=== PATIENT | female | born 1980 | race Two or more races ===

== ENCOUNTER 2018-09-20 20:22 | Observation (INO) | payer MEDICAID ==
[~2018-09-20] VITALS: Ht 167.6 cm; Wt 81.6 kg
[2018-09-20] MEDS ORDERED: ONDANSETRON HCL 4MG/2ML INJ IV NR (21:30)
[2018-09-20] MEDS: LACTATED RINGERS 1,000 ML IV SCH (21:52)
[2018-09-20 22:28] LABS: CHLORIDE 106 mEq/L (98-107)
[2018-09-20 22:34] LABS: BASOPHILS % 0.5 % (0.0-2.0); EOSINOPHILS % 1.1 % (0.0-5.0); HEMATOCRIT. 36.3 % (36.0-48.0); HEMOGLOBIN. 12.1 g/dL (12.0-16.0); LYMPHOCYTES % 15.1 % (20.0-50.0); MEAN CORPUSCULAR HEMOGLOBIN 31.1 pg (28.0-32.0); MEAN CORPUSCULAR VOLUME 93.3 fL (81.0-99.0); MEAN PLATELET VOLUME 9.2 fl (7.4-10.4); MONOCYTES % 10.1 % (2.0-8.0); NEUTROPHILS % 73.2 % (40.0-76.0); PLATELET 242 x1000/uL (130-400); RED BLOOD CELL COUNT 3.89 mill/uL (4.2-5.4); RED CELL DISTRIBUTION WIDTH 13.3 % (11.6-14.6)
[2018-09-20] MEDS ORDERED: CITRIC ACID/SODIUM CITRATE SOLN 30ML UDC PO SCH (23:45)
[2018-09-21 00:55] LABS: CLARITY URINE CLOUDY (CLEAR); COLOR URINE YELLOW (YELLOW); KETONES URINE TRACE (NEGATIVE); LEUKOCYTE ESTERASE URINE NEGATIVE (NEGATIVE); NITRITE URINE NEGATIVE (NEGATIVE); OCCULT BLOOD URINE NEGATIVE (NEGATIVE); PH URINE 6.5 (4.5-8.0); PROTEIN URINE NEGATIVE (NEGATIVE); SPECIFIC GRAVITY URINE 1.025 (1.005-1.030)
[2018-09-21 01:04] LABS: *BARBITURATES SCREEN URINE NEGATIVE (NEGATIVE); *BENZODIAZEPINES SCREEN URINE NEGATIVE (NEGATIVE); *COCAINE SCREEN URINE NEGATIVE (NEGATIVE)
[2018-09-21 01:05] LABS: *AMPHETAMINES SCREEN URINE NEGATIVE (NEGATIVE); CANNABINOID URINE SCREEN NEGATIVE (NEGATIVE); METHADONE URINE SCREEN NEGATIVE (NEGATIVE); OPIATES URINE SCREEN NEGATIVE (NEGATIVE); PHENCYCLIDINE URINE SCREEN NEGATIVE (NEGATIVE)
[2018-09-21] MEDS ORDERED: PNV1TABL50 MT (02:14)
[2018-09-21] MEDS ORDERED: GUAIFENESIN-DM 200MG-20MG/10ML UDC PO SCH (02:15)
[2018-09-21] MEDS: LACTATED RINGERS 1,000 ML IV SCH (04:24)
== END 2018-09-21 02:45 | disposition home or self-care (01) ==
LOC: 8 EST LDRP 20:22
PROVIDERS: ADMIT Obstetrics & Gynecology; ATTEND Obstetrics & Gynecology
DX: O62.9 Abnormality of forces of labor, unspecified (principal); O21.2 Late vomiting of pregnancy; O26.893 Other specified pregnancy related conditions, third trimester; L29.9 Pruritus, unspecified; O09.523 Supervision of elderly multigravida, third trimester; Z3A.37 37 weeks gestation of pregnancy
CPT/HCPCS: 36415; 76805; 76818; 80053; 80076; 80305; 81003; 85025; 96361; 96374; 99281; G0378; J2405; 82248; 96360

== ENCOUNTER 2020-02-27 11:23 | Observation (INO) | payer MEDICAID, OTHER ==
[~2020-02-27 11:23] MED LIST: PNV1TABL50 MT
[2020-02-27 15:04] LABS: CHLORIDE 108 mEq/L (98-107)
[2020-02-27 15:11] LABS: CLARITY URINE CLEAR (CLEAR); COLOR URINE YELLOW (YELLOW); KETONES URINE TRACE (NEGATIVE); LEUKOCYTE ESTERASE URINE NEGATIVE (NEGATIVE); NITRITE URINE NEGATIVE (NEGATIVE); OCCULT BLOOD URINE NEGATIVE (NEGATIVE); PH URINE 6.5 (4.5-8.0); PROTEIN URINE TRACE (NEGATIVE); SPECIFIC GRAVITY URINE 1.029 (1.005-1.030)
[2020-02-27 15:39] LABS: *BARBITURATES SCREEN URINE NEGATIVE (NEGATIVE); *BENZODIAZEPINES SCREEN URINE NEGATIVE (NEGATIVE); *COCAINE SCREEN URINE NEGATIVE (NEGATIVE)
[2020-02-27 15:40] LABS: *AMPHETAMINES SCREEN URINE NEGATIVE (NEGATIVE); CANNABINOID URINE SCREEN NEGATIVE (NEGATIVE); METHADONE URINE SCREEN NEGATIVE (NEGATIVE); OPIATES URINE SCREEN NEGATIVE (NEGATIVE); PHENCYCLIDINE URINE SCREEN NEGATIVE (NEGATIVE)
[2020-02-27 15:57] LABS: HEPATITIS B SURFACE ANTIGEN NEGATIVE
== END 2020-02-27 15:00 | disposition home or self-care (01) ==
LOC: 8 EST LDRP 11:23
PROVIDERS: ADMIT Obstetrics & Gynecology; ATTEND Obstetrics & Gynecology
DX: O21.2 Late vomiting of pregnancy (principal); Z3A.35 35 weeks gestation of pregnancy; Z79.899 Other long term (current) drug therapy
CPT/HCPCS: 36415; 76805; 76818; 80053; 80305; 81003; 82239; 86592; 86703; 86762; 86850; 86900; 86901; 87340; 99281; G0378

== ENCOUNTER 2020-03-05 13:39 | Inpatient (IN) | payer MEDICAID ==
[~2020-03-05] VITALS: Ht 167.6 cm; Wt 77.1 kg
[2020-03-05] MEDS ORDERED: OXYTOCIN 10 UNITS/ML 1ML ONE (14:41)
[2020-03-05] MEDS ORDERED: ACETAMINOPHEN WITH CODEINE 300/30MG TABLET PO PRN (15:00)
[2020-03-05] MEDS ORDERED: LANOLIN OINT 7GM TUBE TOP PRN (15:00)
[2020-03-05] MEDS ORDERED: BENZOCAINE/LANOLIN/ALOE VERA SPRAY TOP PRN (15:00)
[2020-03-05] MEDS ORDERED: METHYLERGONOVINE MALEATE 0.2 MG/ML IM PRN (15:00)
[2020-03-05] MEDS ORDERED: IBUPROFEN 400MG TABLET PO PRN (15:00)
[2020-03-05] MEDS ORDERED: HEMORRHOIDAL SUPP PR PRN (15:00)
[2020-03-05] MEDS ORDERED: BISACODYL 10MG SUPP PR PRN (15:00)
[2020-03-05] MEDS ORDERED: GLYCERIN/WITCH HAZEL LEAF MEDICATED PAD TOP PRN (15:00)
[2020-03-05 15:25] LABS: BASOPHILS % 0.4 % (0.0-2.0); EOSINOPHILS % 0.2 % (0.0-5.0); HEMATOCRIT. 36.7 % (36.0-48.0); HEMOGLOBIN. 12.5 g/dL (12.0-16.0); LYMPHOCYTES % 11.5 % (20.0-50.0); MEAN CORPUSCULAR HEMOGLOBIN 31.5 pg (28.0-32.0); MEAN CORPUSCULAR VOLUME 92.8 fL (81.0-99.0); MEAN PLATELET VOLUME 9.9 fl (7.4-10.4); NEUTROPHILS % 82.9 % (40.0-76.0); PLATELET 244 x1000/uL (130-400); RED BLOOD CELL COUNT 3.95 mill/uL (4.2-5.4); RED CELL DISTRIBUTION WIDTH 13.1 % (11.6-14.6)
[2020-03-05 15:34] LABS: INR 0.9; PARTIAL THROMBOPLASTIN TIME 28.5 sec (23.4-31.0)
[2020-03-05 15:45] VITALS: BP 145/88
[2020-03-05 16:04] LABS: HEPATITIS B SURFACE ANTIGEN NEGATIVE
[2020-03-05 17:00] VITALS: BP 114/68
[2020-03-05 20:00] VITALS: BP 131/74
[2020-03-05] MEDS: SIMETHICONE 80MG TABLET CHEW PO SCH (21:23)
[2020-03-05] MEDS: DOCUSATE SODIUM 100MG CAPSULE PO SCH (21:23)
[2020-03-05] MEDS: MAGNESIUM/ALUMINUM HYDROXIDE/SIMETHICONE 30ML UDC PO SCH (21:23)
[2020-03-05 22:10] LABS: CLARITY URINE CLOUDY (CLEAR); COLOR URINE ORANGE (YELLOW); KETONES URINE NEGATIVE (NEGATIVE); LEUKOCYTE ESTERASE URINE 1+ (NEGATIVE); NITRITE URINE NEGATIVE (NEGATIVE); OCCULT BLOOD URINE 3+ (NEGATIVE); PROTEIN URINE 1+ (NEGATIVE); SPECIFIC GRAVITY URINE 1.026 (1.005-1.030)
[2020-03-05 22:29] LABS: *AMPHETAMINES SCREEN URINE NEGATIVE (NEGATIVE); *BARBITURATES SCREEN URINE NEGATIVE (NEGATIVE)
[2020-03-05 22:30] LABS: *BENZODIAZEPINES SCREEN URINE NEGATIVE (NEGATIVE); *COCAINE SCREEN URINE NEGATIVE (NEGATIVE); CANNABINOID URINE SCREEN NEGATIVE (NEGATIVE); METHADONE URINE SCREEN NEGATIVE (NEGATIVE); PHENCYCLIDINE URINE SCREEN NEGATIVE (NEGATIVE)
[2020-03-05 22:38] LABS: OPIATES URINE SCREEN PRESUMTIVE POSITIVE (NEGATIVE)
[2020-03-06] MEDS: ACETAMINOPHEN WITH CODEINE 300/30MG TABLET PO PRN ×2 (01:19→09:31)
[2020-03-06 04:00] VITALS: BP 106/68
[2020-03-06] MEDS: PRENATAL VIT/FE FUMARATE/FA TABLET PO SCH (09:30)
[2020-03-06] MEDS: FERROUS SULFATE 325MG TABLET PO SCH ×2 (09:30→17:58)
[2020-03-06 11:47] LABS: BASOPHILS % 0.3 % (0.0-2.0); EOSINOPHILS % 1.4 % (0.0-5.0); HEMATOCRIT. 33.9 % (36.0-48.0); HEMOGLOBIN. 11.5 g/dL (12.0-16.0); LYMPHOCYTES % 22.9 % (20.0-50.0); MEAN CORPUSCULAR HEMOGLOBIN 31.3 pg (28.0-32.0); MEAN CORPUSCULAR VOLUME 92.7 fL (81.0-99.0); MEAN PLATELET VOLUME 9.7 fl (7.4-10.4); MONOCYTES % 7.6 % (2.0-8.0); NEUTROPHILS % 67.8 % (40.0-76.0); PLATELET 236 x1000/uL (130-400); RED BLOOD CELL COUNT 3.66 mill/uL (4.2-5.4); RED CELL DISTRIBUTION WIDTH 13.1 % (11.6-14.6)
[2020-03-06 16:45] VITALS: BP 107/53
[2020-03-06 20:00] VITALS: BP 119/69
[2020-03-06] MEDS: MAGNESIUM/ALUMINUM HYDROXIDE/SIMETHICONE 30ML UDC PO SCH (23:41)
[2020-03-06] MEDS: DOCUSATE SODIUM 100MG CAPSULE PO SCH (23:41)
[2020-03-06] MEDS: SIMETHICONE 80MG TABLET CHEW PO SCH (23:41)
[2020-03-07 04:00] VITALS: BP 124/73
[2020-03-07 08:20] VITALS: BP 103/52
[2020-03-07] MEDS: PRENATAL VIT/FE FUMARATE/FA TABLET PO SCH (08:47)
[2020-03-07] MEDS: FERROUS SULFATE 325MG TABLET PO SCH (08:47)
== END 2020-03-07 15:45 | disposition home or self-care (01) | DRG 561 ==
LOC: OBSVTOIN 13:39 → 8EST NSY 13:39 → 8 EST A/PP 14:01
PROVIDERS: ADMIT Obstetrics & Gynecology; ATTEND Obstetrics & Gynecology
DX: Z39.0 Encounter for care and examination of mother immediately after delivery (principal); Z88.8 Allergy status to other drugs, medicaments and biological substances
CPT/HCPCS: 36415; 80305; 81003; 85025; 86592; 86703; 86762; 86850; 86900; 87340; 99281

== ENCOUNTER 2022-03-06 04:06 | Emergency (ER) | payer MEDICAID ==
[~2022-03-06] VITALS: Ht 170.2 cm; Wt 70.0 kg
[2022-03-06 04:27] LABS: BASOPHILS % 0.3 % (0.0-2.0); HEMATOCRIT. 42.7 % (36.0-48.0); HEMOGLOBIN. 14.1 g/dL (12.0-16.0); LYMPHOCYTES % 34.7 % (20.0-50.0); MEAN CORPUSCULAR HEMOGLOBIN 29.8 pg (28.0-32.0); MEAN CORPUSCULAR VOLUME 90.2 fL (81.0-99.0); MEAN PLATELET VOLUME 9.1 fl (7.4-10.4); MONOCYTES % 8.3 % (2.0-8.0); NEUTROPHILS % 54.7 % (40.0-76.0); PLATELET 307 x1000/uL (130-400); RED BLOOD CELL COUNT 4.73 mill/uL (4.2-5.4); RED CELL DISTRIBUTION WIDTH 12.9 % (11.6-14.6)
[2022-03-06 04:33] LABS: CHLORIDE 108 mEq/L (98-107)
[2022-03-06 04:42] LABS: ETHANOL BLOOD < 10 mg/dL
[2022-03-06 09:17] LABS: CLARITY URINE CLOUDY (CLEAR); COLOR URINE YELLOW (YELLOW); KETONES URINE TRACE (NEGATIVE); LEUKOCYTE ESTERASE URINE NEGATIVE (NEGATIVE); NITRITE URINE NEGATIVE (NEGATIVE); OCCULT BLOOD URINE NEGATIVE (NEGATIVE); PH URINE 5.5 (4.5-8.0); PROTEIN URINE TRACE (NEGATIVE); SPECIFIC GRAVITY URINE 1.029 (1.005-1.030)
[2022-03-06 09:36] LABS: *BARBITURATES SCREEN URINE NEGATIVE (NEGATIVE); *BENZODIAZEPINES SCREEN URINE NEGATIVE (NEGATIVE); *COCAINE SCREEN URINE NEGATIVE (NEGATIVE); CANNABINOID URINE SCREEN NEGATIVE (NEGATIVE); METHADONE URINE SCREEN NEGATIVE (NEGATIVE); OPIATES URINE SCREEN NEGATIVE (NEGATIVE)
[2022-03-06 09:40] LABS: *AMPHETAMINES SCREEN URINE PRESUMTIVE POSITIVE (NEGATIVE); PHENCYCLIDINE URINE SCREEN PRESUMTIVE POSITIVE (NEGATIVE)
[2022-03-06] MEDS: RISPERIDONE 0.5MG TABLET PO SCH ×2 (11:33→19:40)
[2022-03-06] MEDS ORDERED: VENLAFAXINE HCL 37.5MG SR CAPSULE 24HR PO SCH (12:00)
[2022-03-06] MEDS ORDERED: OLANZAPINE 10 MG/VIAL IM NR (16:05)
[2022-03-06] MEDS ORDERED: DIPHENHYDRAMINE 50MG/ML VIAL IM NR (16:05)
[2022-03-07 00:02] VITALS: BP 93/52
== END 2022-03-07 00:56 ==
LOC: ER 04:06
DX: F25.1 Schizoaffective disorder, depressive type (principal); F41.9 Anxiety disorder, unspecified; R45.851 Suicidal ideations; F15.10 Other stimulant abuse, uncomplicated; Z20.822 Contact with and (suspected) exposure to COVID-19; Z75.1 Person awaiting admission to adequate facility elsewhere; Z88.5 Allergy status to narcotic agent
CPT/HCPCS: 36415; 80053; 80305; 80307; 80320; 80329; 81003; 81025; 85025; 96372; 99285; C9803; J1200; J3490; U0003; U0005; G0480

== ENCOUNTER 2023-01-12 11:40 | Emergency (ER) | payer MEDICAID ==
[~2023-01-12] VITALS: Ht 162.6 cm; Wt 63.0 kg
[2023-01-12 12:06] VITALS: BP 143/104
[2023-01-12] MEDS ORDERED: KETOROLAC 60MG/2ML VIAL IM STA (12:06)
[2023-01-12] MEDS ORDERED: LIDOCAINE HCL/PF 1% 10 MG/ML 5ML VIAL INFIL ONE ×2 (12:15→14:00)
[2023-01-12] MEDS ORDERED: BACITRACIN ZINC OINT UDPKT TOP ONE ×2 (12:15→15:45)
[2023-01-12] MEDS ORDERED: CEPHALEXIN 250MG CAPSULE PO NR (13:30)
[2023-01-12] MEDS ORDERED: IBUP-2029 PO (16:34)
[2023-01-12] MEDS ORDERED: CEPH500C2 PO (16:34)
[2023-01-12] MEDS ORDERED: TETANUS, DIPHTHERIA, PERTUSSIS VAC/PF 0.5ML (>10YR OLD) IM ONE (16:45)
== END 2023-01-12 17:58 | disposition left against medical advice (07) ==
LOC: ER 11:40
DX: S61.411A Laceration without foreign body of right hand, initial encounter (principal); Z88.5 Allergy status to narcotic agent; W26.0XXA Contact with knife, initial encounter; Y93.89 Activity, other specified; Y92.89 Other specified places as the place of occurrence of the external cause; Y99.8 Other external cause status
CPT/HCPCS: 12002; 73130; 81025; 90471; 90715; 96372; 99283; J1885; J3490; Z7610; 29125

== ENCOUNTER 2023-02-02 15:37 | Emergency (ER) | payer MEDICAID ==
[~2023-02-02] VITALS: Ht 167.6 cm; Wt 68.0 kg
[~2023-02-02 15:37] MED LIST changes: +CEPH500C2 PO; +IBUP-2029 PO; -PNV1TABL50 MT
[2023-02-02 15:40] VITALS: BP 134/94; PULSE 104; RESP 20; TEMP 98.5; O2SAT 99
== END 2023-02-02 17:11 | disposition home or self-care (01) ==
LOC: ER 15:37
DX: Z53.21 Procedure and treatment not carried out due to patient leaving prior to being seen by health care provider (principal)

== ENCOUNTER 2024-04-18 09:53 | Emergency (ER) | payer MEDICAID ==
[~2024-04-18] VITALS: Ht 167.6 cm; Wt 72.0 kg
[2024-04-18 09:58] VITALS: O2SAT 100
[2024-04-18 10:30] LABS: BASOPHILS % 0.3 % (0.0-2.0); HEMATOCRIT. 39.1 % (36.0-48.0); HEMOGLOBIN. 12.9 g/dL (12.0-16.0); LYMPHOCYTES % 23.1 % (20.0-50.0); MEAN CORPUSCULAR HEMOGLOBIN 30.3 pg (28.0-32.0); MEAN CORPUSCULAR VOLUME 91.8 fL (81.0-99.0); MEAN PLATELET VOLUME 8.3 fl (7.4-10.4); MONOCYTES % 6.8 % (2.0-8.0); NEUTROPHILS % 67.8 % (40.0-76.0); PLATELET 325 x1000/uL (130-400); RED BLOOD CELL COUNT 4.26 mill/uL (4.2-5.4); RED CELL DISTRIBUTION WIDTH 13.5 % (11.6-14.6); WHITE BLOOD COUNT 6.9 x1000/uL (4.5-11.0)
[2024-04-18 10:37] LABS: CHLORIDE 104 mEq/L (98-107); POTASSIUM 4.6 mEq/L (3.5-5.1); SODIUM 135 mEq/L (136-145)
[2024-04-18 10:38] LABS: CALCIUM 9.2 mg/dL (8.7-10.4); CARBON DIOXIDE 27 mEq/L (21-32)
[2024-04-18 10:43] LABS: CREATININE 0.8 mg/dL (0.6-1.0); GLUCOSE 84 mg/dL (70-105); UREA NITROGEN BLOOD 9 mg/dL (9-23)
[2024-04-18 11:12] LABS: TROPONIN I HIGH SENSITIVITY < 4 ng/L (3.0-34)
[2024-04-18] MEDS ORDERED: IBUP-2029 PO (11:42)
[2024-04-18 12:07] VITALS: BP 104/87; PULSE 99; RESP 16; TEMP 36.83628; O2SAT 100
[2024-04-18] MEDS: IBUPROFEN 600MG TABLET PO ONE ×2 (12:10→12:11)
[2024-04-18] MEDS ORDERED: METH-653 MT (12:12)
== END 2024-04-18 13:31 | disposition home or self-care (01) ==
LOC: ER 09:53
DX: S62.396A Other fracture of fifth metacarpal bone, right hand, initial encounter for closed fracture (principal); S33.5XXA Sprain of ligaments of lumbar spine, initial encounter; R07.89 Other chest pain; F10.20 Alcohol dependence, uncomplicated; J45.909 Unspecified asthma, uncomplicated; F32.A Depression, unspecified; Z88.8 Allergy status to other drugs, medicaments and biological substances; X58.XXXA Exposure to other specified factors, initial encounter; Y93.9 Activity, unspecified; Y92.89 Other specified places as the place of occurrence of the external cause; Y99.8 Other external cause status; Y90.0 Blood alcohol level of less than 20 mg/100 ml
CPT/HCPCS: 36415; 71045; 73130; 80048; 84484; 85025; 93005; 99285

== ENCOUNTER 2024-05-06 18:47 | Emergency (ER) | payer MEDICAID, OTHER ==
[~2024-05-06] VITALS: Ht 167.6 cm; Wt 68.0 kg
[~2024-05-06 18:47] MED LIST changes: +METH-653 MT
[2024-05-06 19:01] VITALS: O2SAT 99
[2024-05-06 21:42] LABS: BASOPHILS % 0.4 % (0.0-2.0); EOSINOPHILS % 0.9 % (0.0-5.0); HEMATOCRIT. 43.1 % (36.0-48.0); HEMOGLOBIN. 14.5 g/dL (12.0-16.0); LYMPHOCYTES % 20.4 % (20.0-50.0); MEAN CORPUSCULAR HEMOGLOBIN 30.7 pg (28.0-32.0); MEAN CORPUSCULAR HGB CONC 33.7 g/dL (31.0-37.0); MEAN CORPUSCULAR VOLUME 91.2 fL (81.0-99.0); MEAN PLATELET VOLUME 9.1 fl (7.4-10.4); MONOCYTES % 5.4 % (2.0-8.0); NEUTROPHILS % 72.9 % (40.0-76.0); PLATELET 254 x1000/uL (130-400); RED BLOOD CELL COUNT 4.72 mill/uL (4.2-5.4); RED CELL DISTRIBUTION WIDTH 13.6 % (11.6-14.6); WHITE BLOOD COUNT 9.7 x1000/uL (4.5-11.0)
[2024-05-06 21:50] LABS: CARBON DIOXIDE 28 mEq/L (21-32); CHLORIDE 106 mEq/L (98-107); POTASSIUM 3.7 mEq/L (3.5-5.1); SODIUM 139 mEq/L (136-145)
[2024-05-06 21:51] LABS: CALCIUM 9.8 mg/dL (8.7-10.4)
[2024-05-06 21:56] LABS: CREATININE 0.7 mg/dL (0.6-1.0); GLUCOSE 91 mg/dL (70-105); UREA NITROGEN BLOOD 12 mg/dL (9-23)
[2024-05-06 21:58] LABS: TROPONIN I HIGH SENSITIVITY < 4 ng/L (3.0-34)
[2024-05-06] MEDS: MORPHINE SULFATE 4 MG/ML INJ (FOR IV/IM USE) IV ONE (23:21)
[2024-05-06] MEDS: SODIUM CHLORIDE 0.9% 1,000 ML IV ONE (23:22)
[2024-05-06] MEDS: ONDANSETRON HCL 4MG/2ML INJ IV ONE (23:22)
[2024-05-06 23:23] LABS: CLARITY URINE CLOUDY (CLEAR); COLOR URINE YELLOW (YELLOW); GLUCOSE URINE NEGATIVE (NEGATIVE); KETONES URINE 1+ (NEGATIVE); LEUKOCYTE ESTERASE URINE 2+ (NEGATIVE); NITRITE URINE NEGATIVE (NEGATIVE); OCCULT BLOOD URINE NEGATIVE (NEGATIVE); PROTEIN URINE 2+ (NEGATIVE); SPECIFIC GRAVITY URINE 1.024 (1.005-1.030)
[2024-05-06 23:48] LABS: SQUAMOUS EPITHELIAL CELL URINE 1+ /lpf (RARE/1+)
[2024-05-06 23:49] LABS: RBC URINE 0-2 /hpf (0-2); WBC URINE 15-25 /hpf (0-2)
[2024-05-06 23:51] LABS: BACTERIA URINE 1+
[2024-05-07] MEDS ORDERED: HYDR-4001 MT (00:06)
[2024-05-07] MEDS ORDERED: LIDO700A30 TP (00:07)
[2024-05-07] MEDS ORDERED: NAPR-681 MT (00:07)
[2024-05-07] MEDS ORDERED: HYDROMORPHONE HCL/PF 2MG/ML INJ IV ONE (00:15)
[2024-05-07] MEDS: HYDROMORPHONE HCL/PF 1MG/ML INJ IV NR (00:35)
[2024-05-07 00:45] VITALS: BP 135/90; PULSE 101; RESP 16; TEMP 36.78072; O2SAT 100
== END 2024-05-07 00:54 | disposition home or self-care (01) ==
LOC: ER 18:47
DX: S13.9XXA Sprain of joints and ligaments of unspecified parts of neck, initial encounter (principal); S63.502A Unspecified sprain of left wrist, initial encounter; S63.501A Unspecified sprain of right wrist, initial encounter; F17.200 Nicotine dependence, unspecified, uncomplicated; J45.909 Unspecified asthma, uncomplicated; F19.90 Other psychoactive substance use, unspecified, uncomplicated; Z88.5 Allergy status to narcotic agent; Z79.899 Other long term (current) drug therapy; Y08.89XA Assault by other specified means, initial encounter; Y93.89 Activity, other specified; Y92.89 Other specified places as the place of occurrence of the external cause; Y99.8 Other external cause status
CPT/HCPCS: 99284; 96374; 96361; 96375 ×2; 80048; 81003; 85025; 87086; 84484; 36415; 73110; 73130; 29125; 93005; J2405; J2270; J7030; J1171; A4565

== ENCOUNTER 2024-05-30 16:13 | Emergency (ER) | payer OTHER ==
[~2024-05-30] VITALS: Ht 162.6 cm; Wt 70.0 kg
[~2024-05-30 16:13] MED LIST changes: +HYDR-4001 MT; +LIDO700A30 TP; +NAPR-681 MT
[2024-05-30 16:15] VITALS: BP 147/92; PULSE 126; RESP 18; TEMP 98.2; O2SAT 98
[2024-05-30] MEDS ORDERED: NAP5EC MT (18:07)
[2024-05-30] MEDS ORDERED: ACETAMINOPHEN 325MG TABLET PO NR (18:23)
== END 2024-05-30 18:30 | disposition home or self-care (01) ==
LOC: ER 16:13
DX: S00.83XA Contusion of other part of head, initial encounter (principal); J45.909 Unspecified asthma, uncomplicated; Z88.5 Allergy status to narcotic agent; Y04.0XXA Assault by unarmed brawl or fight, initial encounter; Y93.89 Activity, other specified; Y92.89 Other specified places as the place of occurrence of the external cause; Y99.8 Other external cause status
CPT/HCPCS: 99283

== ENCOUNTER 2024-09-30 22:42 | Emergency (ER) | payer OTHER ==
[~2024-09-30] VITALS: Ht 172.7 cm; Wt 82.0 kg
[~2024-09-30 22:42] MED LIST changes: +NAPR-1495 MT
[2024-09-30 22:44] VITALS: TEMP 36.8; O2SAT 99
[2024-09-30] MEDS: KETOROLAC 15MG/ML VIAL IM ONE (23:37)
[2024-09-30] MEDS: ACETAMINOPHEN 325MG TABLET PO ONE (23:37)
[2024-10-01 00:13] LABS: HCG SCREEN NEGATIVE
[2024-10-01] MEDS: LIDOCAINE HCL 1% 20ML VIAL INFIL ONE (02:36)
[2024-10-01] MEDS: MIDAZOLAM HCL 2 MG/2 ML VIAL IV ONE (02:36)
[2024-10-01 02:40] VITALS: BP 121/76; PULSE 95; RESP 14
== END 2024-10-01 06:19 | disposition home or self-care (01) ==
LOC: ER 22:42
DX: S52.399A Other fracture of shaft of radius, unspecified arm, initial encounter for closed fracture (principal); Z79.1 Long term (current) use of non-steroidal anti-inflammatories (NSAID); Z79.899 Other long term (current) drug therapy; Z88.5 Allergy status to narcotic agent; W23.0XXA Caught, crushed, jammed, or pinched between moving objects, initial encounter; Y93.89 Activity, other specified; Y92.89 Other specified places as the place of occurrence of the external cause; Y99.8 Other external cause status
CPT/HCPCS: 25565; 84703; 73070; 73090 ×2; 73110; 96372; 99285; 96374; J1885; J3490; J2250

== ENCOUNTER 2024-10-02 06:36 | Emergency (ER) | payer OTHER ==
[~2024-10-02] VITALS: Ht 170.2 cm; Wt 71.0 kg
[2024-10-02 06:39] VITALS: BP 148/76; PULSE 100; RESP 16; TEMP 36.9; O2SAT 99
== END 2024-10-02 08:08 | disposition left against medical advice (07) ==
LOC: ER 06:36
DX: S69.80XA Other specified injuries of unspecified wrist, hand and finger(s), initial encounter (principal); Z53.21 Procedure and treatment not carried out due to patient leaving prior to being seen by health care provider; X58.XXXA Exposure to other specified factors, initial encounter; Y93.89 Activity, other specified; Y92.89 Other specified places as the place of occurrence of the external cause; Y99.8 Other external cause status
CPT/HCPCS: A4565

== ENCOUNTER 2025-01-13 15:59 | Emergency (ER) | payer OTHER ==
[~2025-01-13] VITALS: Ht 167.6 cm; Wt 72.0 kg
[2025-01-13 16:08] VITALS: O2SAT 100
[2025-01-13 16:12] VITALS: BP 128/74; PULSE 100; RESP 16; TEMP 36.8; O2SAT 99
== END 2025-01-13 16:53 | disposition left against medical advice (07) ==
LOC: ER 15:59
DX: Z76.0 Encounter for issue of repeat prescription (principal); Z53.21 Procedure and treatment not carried out due to patient leaving prior to being seen by health care provider

== ENCOUNTER 2025-01-16 00:23 | Emergency (ER) | payer OTHER ==
[~2025-01-16] VITALS: Ht 167.6 cm; Wt 62.0 kg
[2025-01-16 00:34] VITALS: O2SAT 100
[2025-01-16 02:03] LABS: BASOPHILS % 0.4 % (0.0-2.0); EOSINOPHILS % 2.5 % (0.0-5.0); HEMATOCRIT. 33.6 % (36.0-48.0); LYMPHOCYTES % 32.7 % (20.0-50.0); MEAN CORPUSCULAR HEMOGLOBIN 29.1 pg (28.0-32.0); MEAN CORPUSCULAR HGB CONC 32.7 g/dL (31.0-37.0); MEAN CORPUSCULAR VOLUME 89.1 fL (81.0-99.0); MEAN PLATELET VOLUME 9.9 fl (7.4-10.4); MONOCYTES % 8.8 % (2.0-8.0); NEUTROPHILS % 55.6 % (40.0-76.0); PLATELET 278 x1000/uL (130-400); RED BLOOD CELL COUNT 3.77 mill/uL (4.2-5.4); RED CELL DISTRIBUTION WIDTH 13.5 % (11.6-14.6); WHITE BLOOD COUNT 7.6 x1000/uL (4.5-11.0)
[2025-01-16 03:00] VITALS: BP 136/76; PULSE 97; RESP 31; TEMP 36.7; O2SAT 100
[2025-01-16 03:20] LABS: HCG SCREEN NEGATIVE
[2025-01-17] MEDS ORDERED: KETO10TA2 MT (04:34)
== END 2025-01-16 05:20 ==
LOC: ER 00:23
DX: T76.21XA Adult sexual abuse, suspected, initial encounter (principal); N93.9 Abnormal uterine and vaginal bleeding, unspecified; J45.909 Unspecified asthma, uncomplicated; Z79.899 Other long term (current) drug therapy; Z88.5 Allergy status to narcotic agent; X58.XXXA Exposure to other specified factors, initial encounter; Y93.89 Activity, other specified; Y92.89 Other specified places as the place of occurrence of the external cause; Y99.8 Other external cause status
CPT/HCPCS: 36415; 84703; 85025; 99283

== ENCOUNTER 2025-01-16 22:18 | Emergency (ER) | payer OTHER ==
[~2025-01-16] VITALS: Ht 167.6 cm; Wt 59.0 kg
[2025-01-16 22:26] VITALS: BP 106/59; PULSE 95; RESP 17; TEMP 36.3; O2SAT 99
[2025-01-17] MEDS: KETOROLAC 30MG/ML VIAL IM ONE (02:51)
[2025-01-17] MEDS ORDERED: KETO10TA2 MT (04:34)
== END 2025-01-17 05:19 | disposition home or self-care (01) ==
LOC: ER 22:18
DX: S70.312A Abrasion, left thigh, initial encounter (principal); N93.9 Abnormal uterine and vaginal bleeding, unspecified; R07.81 Pleurodynia; J45.909 Unspecified asthma, uncomplicated; Z79.1 Long term (current) use of non-steroidal anti-inflammatories (NSAID); Z88.5 Allergy status to narcotic agent; Y08.89XA Assault by other specified means, initial encounter; Y93.89 Activity, other specified; Y92.89 Other specified places as the place of occurrence of the external cause; Y99.8 Other external cause status
CPT/HCPCS: 99283